=== PATIENT | male | born 1960 | race Caucasian/White ===

== ENCOUNTER → 2016-04-28 | Outpatient (CLI) | payer MEDICAID ==
[~2016-04-28] MED LIST: ALAVERT10 M1 PO; ALLERGY10 M1 PO; ASPIRIN81 MG PO; BYSTOLIC10 MG PO; FENOFIBRATE54 MG PO; GLIPIZIDE10 MG PO; GLUCOPHAGE500 M1 PO; LIPITOR PO; MELOXICAM15 MG PO; MEN'S ONE DAILY1 TA1 PO; NEXIUM PO; TRADJENTA5 MG PO; TRAMADOL HCL50 M1 PO
--- NOTE | ~2016-04-28 | CT55 ---
[facility] A Service of [facility] RADIOLOGY TEXT RESULTS PATIENT: WHITNEY GARCIA LOCATION: [facility] M[facility] BLACK CAMPUST : 60 UNIT #: [id number] AGE: [address]: Duc Ryder MD SEX: M ORDER DR: [id number] [facility] [place] [address] [place], [place] [address] [id number] O MR#: [id number] Acc #: [id number] NAME: WHITNEY GARCIA : 1960 SEX: M STUDY DATE/TIME: 04/28/2016 14:17 UNIT: [facility] ROOM: STUDY DESCRIPTION: CT Chest W Con Attending Physician: Duc Ryder M.D. Ordering Physician: Duc yRder M.D. Primary Care Physician: Rob Chance D.O. MEDICAL IMAGING REPORT This report is preliminary unless electronic signature is present EXAM CT Chest INDICATIONS Mediastinal lymphadenopathy. Pulmonary nodules. Shortness of air. TECHNIQUE CT of the thorax utilizing 70 mL Isovue-370 IV contrast. Coronal and sagittal reconstructions were obtained. This CT exam was performed with one or more of the following radiation dose reduction techniques: automatic control, adjustment of mA and/or kV according to patient size, and iterative reconstruction. COMPARISON CT chest dated 10/26/2015. FINDINGS Small supraclavicular lymph nodes are unchanged from the prior study. Right supraclavicular node measures 1.2 cm in short axis. A right paratracheal lymph node in the superior mediastinum measures 1 cm in short axis compared to 1 cm previously. Conglomeration of nodes just above the loly along the left side of the trachea measures 1.9 x 1.6 cm compared to 1.9 x 2 cm previously. AP window lymph node measures 0.92 cm in short axis, unchanged. Right hilar lymphadenopathy is slightly improved. Left hilar adenopathy is fairly similar to the prior study. There is no pericardial or pleural effusion. Thoracic aorta is normal in size. A rim distribution of pulmonary nodules in both lungs are unchanged from the prior study. There is an index nodule in the lingula measuring up to 0.7 cm compared to 0.8 cm previously. 0.8 cm pulmonary nodule in the right middle lobe, also unchanged. Non index nodules are similar to the STS. [facility] A Service of [facility] RADIOLOGY TEXT RESULTS PATIENT: WHITNEY GARCIA LOCATION: [facility] : 60 UNIT #: [id number] AGE: [address]: Duc Ryder MD SEX: M ORDER DR: prior study. The central airways are patent. No new areas of consolidation. Limited images of the upper abdomen were obtained. There are some prominent periportal lymph nodes, however they are not considered to be pathologically enlarged. No acute osseous abnormalities. IMPRESSION 1. Supraclavicular, mediastinal, and hilar lymphadenopathy is unchanged from the 10/26/2015 exam. 2. Random distribution of multiple pulmonary nodules throughout both lungs are also unchanged. Dictated by... Musa Molina M.D. THIS IS AN ELECTRONICALLY VERIFIED REPORT Musa Molina M.D. at 04/30/2016 11:41 AM SHANTA/doris TD: 04/29/2016 01:44 JOB #: [id number] MEDICAL IMAGING REPORT COPY
[2016-04-28 14:38] LABS: POC - GFR >60.0 mL/min (>60)
== END | disposition home or self-care (01) ==
LOC: CCAT 13:02
PROVIDERS: Internal Medicine
DX: R94.8 Abnormal results of function studies of other organs and systems (principal); R59.0 Localized enlarged lymph nodes; R91.8 Other nonspecific abnormal finding of lung field
CPT/HCPCS: 71260; 82565; Q9967